=== PATIENT | male | born 1940 | race Caucasian/White ===

== ENCOUNTER 2016-12-04 18:48 | Inpatient (IN) | payer MEDICARE, BC ==
--- NOTE | 2016-12-04 19:35 | EDM.PDOC ---
ED HPI GENERAL MEDICAL PROBLEM - General Chief Complaint: General Stated Complaint: WEAKNESS Time Seen by Provider: 12/04/16 19:27 Source of Information: Reports: Patient, Family () History Limitations: Reports: No Limitations - History of Present Illness INITIAL COMMENTS - FREE TEXT/NARRATIVE: PER , SHE STATES PT HAS BECOME INCREASINGLY WEAK AND SHE CAN'T TAKE CARE OF HIM ANYMORE. HE HAS DIFFICULTY WALKING AND USING THE BATHROOM. PT DENIES CP, SOB , VEGA, ANY PAIN, N/V/D, OR LOC. Onset: Gradual Severity: Mild Improves with: Reports: None Worsens with: Reports: None Associated Symptoms: Reports: No Other Symptoms - Related Data Allergies Allergy/AdvReac Type Severity Reaction Status Date / Time No Known Drug Allergies Allergy Cannot Verified 11/06/14 00:48 Remember Home Meds: Home Meds Acetaminophen [Non-Aspirin] 650 mg PO Q6H PRN 09/30/13 [History] Albuterol [Proventil Neb Soln] 1 unit INH QID PRN 09/30/13 [History] Albuterol [Ventolin HFA] 2 puff INH Q4H PRN 09/30/13 [History] Aspirin 325 mg PO DAILY 09/30/13 [History] traMADol [Ultram] 50 - 100 mg PO TID PRN 09/30/13 [History] Furosemide [Lasix] 40 mg PO DAILY #60 tab 10/03/13 [Rx] Mirabegron [Myrbetriq] 25 mg PO DAILY 12/04/16 [History] Spironolactone [Aldactone] 50 mg PO BID 12/04/16 [History] Umeclidinium [place] [Incruse Ellipta] 1 puff INH DAILY 12/04/16 [History] Social & Family History - Tobacco Use Smoking Status *Q: Light Tobacco Smoker Years of Tobacco use: 50 Used Tobacco, but Quit: No - Alcohol Use Days Per Week of Alcohol Use: 0 - Recreational Drug Use Recreational Drug Use: No ED ROS GENERAL - Review of Systems Review Of Systems: ROS reveals no pertinent complaints other than HPI. Constitutional: Reports: Weakness HEENT: Reports: No Symptoms Respiratory: Reports: No Symptoms Cardiovascular: Reports: No Symptoms Endocrine: Reports: No Symptoms GI/Abdominal: Reports: No Symptoms : Reports: No Symptoms Musculoskeletal: Reports: No Symptoms Skin: Reports: No Symptoms Neurological: Reports: No Symptoms Psychiatric: Reports: No Symptoms Hematologic/Lymphatic: Reports: No Symptoms Immunologic: Reports: No Symptoms ED EXAM, GENERAL - Physical Exam Exam: See Below Exam Limited By: No Limitations General Appearance: Alert, WD/WN, No Apparent Distress Eye Exam: Bilateral Eye: Normal Inspection Nose: Normal Inspection, Normal Mucosa, No Blood Throat/Mouth: Normal Inspection, Normal Oropharynx, No Airway Compromise Head: Atraumatic, Normocephalic Neck: Normal Inspection, Supple, Non-Tender Respiratory/Chest: No Respiratory Distress, Lungs Clear, Decreased Breath Sounds Cardiovascular: Regular Rate, Rhythm, No Murmur GI/Abdominal: Normal Bowel Sounds, Soft, Non-Tender Back Exam: Normal Inspection. No: CVA Tenderness (L), CVA Tenderness (R) Extremities: Normal Inspection, No Pedal Edema, Normal Capillary Refill Neurological: Alert, Oriented, Normal Cognition Psychiatric: Normal Affect, Normal Mood Skin Exam: Warm, Dry, Intact, Normal Color, No Rash Lymphatic: No Adenopathy EKG INTERPRETATION EKG Date: 12/04/16 Time: 20:15 QT: prolonged EKG Interpretation Comments: PVC'S Course - Orders/Labs/Meds Orders: Active Orders 24 hr Category Date Time Status EKG Documentation Completion [RC] ASDIRECTED Care 12/04/16 19:01 Active Peripheral IV Care [RC] . DIRECTED Care 12/04/16 19:01 Active Chest 1V Frontal [CR] Stat Exams 12/04/16 19:00 Ordered COMPREHENSIVE METABOLIC PN,CMP [CHEM] Stat Lab 12/04/16 19:00 Ordered UA W/MICROSCOPIC [URIN] Stat Lab 12/04/16 19:00 Uncollected Sodium Chloride 0.9% [Syrex Flush] Med 12/04/16 19:00 Active 5 ml FLUSH Q8HR PRN Peripheral IV Insertion Adult [OM.PC] Routine Oth 12/04/16 19:00 Ordered EKG 12 Lead [EK] Routine Ther 12/04/16 19:00 Ordered Medication Orders Sodium Chloride (Syrex Flush) 5 ml FLUSH Q8HR PRN PRN Reason: Keep Vein Open Labs: Laboratory Tests 12/04/16 Range/Units 19:10 WBC 12.4 H (5.0-10.0) 10^3/uL RBC 4.95 (4.50-6.00) 10^6/uL Hgb 15.4 (13.0-17.0) g/dL Hct 45.7 (40.0-52.0) % MCV 92.4 H (82.0-92.0) fL MCH 31.1 H (27.0-31.0) pg MCHC 33.7 (32.0-36.0) g/dL RDW 13.1 (11.5-14.5) % Plt Count 153 (150-300) 10^3/uL MPV 8.5 (7.4-10.4) fL Neut % (Auto) 84.3 H (50.0-70.0) % Lymph % (Auto) 6.0 L (20.0-40.0) % [place] % (Auto) 9.1 H (2.0-8.0) % Eos % (Auto) 0.6 L (1.0-3.0) % Baso % (Auto) 0.0 (0.0-1.0) % Neut # (Auto) 10.5 H (2.5-7.0) 10^3/uL Lymph # (Auto) 0.7 L (1.0-4.0) 10^3/uL [place] # (Auto) 1.1 H (0.1-0.8) 10^3/uL Eos # (Auto) 0.1 (0.1-0.3) 10^3/uL Baso # (Auto) 0.0 (0.0-0.1) 10^3/uL Meds: Medications Generic Name Dose Route Start Last Admin Trade Name Freq PRN Reason Stop Dose Admin Sodium Chloride 5 ml 12/04/16 19:00 Syrex Flush FLUSH Q8HR PRN Keep Vein Open - Radiology Interpretation Free Text/Narrative:: CXR NO ACUTE PROCESS - Re-Assessments/Exams Free Text/Narrative Re-Assessment/Exam: 12/04/16 20:36 PT AFEBRILE, NONTOXIC APPEARING, SAT 95% ON MASK. DISCUSSED CASE WITH ALYSON BARBA AT [facility] AND HE WILL ADMIT AND FOLLOW Departure - Departure Time of Disposition: 20:38 Disposition: Admitted As Inpatient 64 Condition: fair Clinical Impression: Weakness of both legs, Hypoxia, Urinary retention, UTI, Urinary tract infectious disease, COPD (chronic obstructive pulmonary disease) - Discharge Information Forms: ED Department Discharge - My Orders Last 24 Hours: My Active Orders 12/04/16 19:00 Chest 1V Frontal [CR] Stat COMPREHENSIVE METABOLIC PN,CMP [CHEM] Stat UA W/MICROSCOPIC [URIN] Stat Sodium Chloride 0.9% [Syrex Flush] 5 ml FLUSH Q8HR PRN Peripheral IV Insertion Adult [OM.PC] Routine EKG 12 Lead [EK] Routine 12/04/16 19:01 EKG Documentation Completion [RC] ASDIRECTED Peripheral IV Care [RC] . DIRECTED - Assessment/Plan Last 24 Hours: My Active Orders 12/04/16 19:00 Chest 1V Frontal [CR] Stat COMPREHENSIVE METABOLIC PN,CMP [CHEM] Stat UA W/MICROSCOPIC [URIN] Stat Sodium Chloride 0.9% [Syrex Flush] 5 ml FLUSH Q8HR PRN Peripheral IV Insertion Adult [OM.PC] Routine EKG 12 Lead [EK] Routine 12/04/16 19:01 EKG Documentation Completion [RC] ASDIRECTED Peripheral IV Care [RC] . DIRECTED Assessment:: UTI / WEAKNESS Plan: ADMIT INPATIENT
[2016-12-04] MEDS ORDERED: methylPREDNISolone Sodium Succinate 125 MG/2 ML SDV IVPUSH ONE (20:31)
[2016-12-04] MEDS ORDERED: cefTRIAXone 1 GM Vial IVPUSH ONE (20:32)
[2016-12-04] MEDS ORDERED: Albuterol HFA 18 Gm Inhaler INH PRN (21:05)
[2016-12-04] MEDS ORDERED: traMADol 50 MG Tab PO PRN (21:05)
[2016-12-04] MEDS ORDERED: Non-Formulary Medication 1 Each (Mirabegron 25 MG) PO SCH (21:15)
[2016-12-04] MEDS ORDERED: cefTRIAXone 1 GM in Sodium Chloride 0.9% 50 ML IV SCH (21:15)
[2016-12-04] MEDS: Sodium Chloride 0.9% 5 ML Syringe FLUSH PRN (21:42)
[2016-12-04] MEDS: Albuterol/Ipratropium 3.0-0.5 MG/3 ML Neb Soln NEB SCH ×2 (21:46→22:51)
[2016-12-04] MEDS: Umeclidinium Bromide 62.5 MCG 30 Puff Inhaler IH SCH (21:53)
[2016-12-05] MEDS: Albuterol/Ipratropium 3.0-0.5 MG/3 ML Neb Soln NEB SCH ×4 (05:28→22:32)
[2016-12-05] MEDS: Aspirin 325 MG Tab.EC PO SCH (08:07)
[2016-12-05] MEDS: Furosemide 40 MG Tab PO SCH (08:07)
[2016-12-05] MEDS: Spironolactone 25 MG Tab PO SCH ×2 (08:07→20:43)
[2016-12-05] MEDS: Acetaminophen 325 MG Tab PO SCH ×2 (08:07→20:44)
[2016-12-05] MEDS: methylPREDNISolone Sodium Succinate 125 MG/2 ML SDV IVPUSH SCH ×2 (08:13→20:44)
[2016-12-05] MEDS: Umeclidinium Bromide 62.5 MCG 30 Puff Inhaler IH SCH (08:35)
[2016-12-05] MEDS ORDERED: Betamethasone Dipropionate/Clotrimazole 0.05-1% Crm 15 GM Tube TOP SCH (11:00)
--- NOTE | 2016-12-05 12:23 | HP ---
CHIEF COMPLAINT: Leg weakness with deconditioning at home. HISTORY OF PRESENT ILLNESS: The patient has a long history of some spinal stenosis. At home, his has been taking care of him. She states that lately his legs have been getting much weaker. He is unable to stand very long. He is getting very hard to take care of at home. He was just having some generalized weakness. He denied any chest pain, fever, or nausea. The patient was just complaining of generalized weakness, not feeling well with leg weakness. PAST MEDICAL HISTORY: The patient has a history of spinal stenosis, COPD, urinary incontinence, hypertension, leg swelling, and chronic pain. MEDICATIONS: The patient takes Incruse inhaler once daily, Myrbetriq 25 mg daily, albuterol inhalers as needed, Tylenol 650 mg twice a day, Lasix 40 mg daily, aspirin 325 mg daily, Aldactone 50 mg twice a day, and tramadol 50 mg to 100 mg three times a day as needed. SOCIAL/PERSONAL HISTORY: The patient is retired. He did smoke cigarettes for 50 years. He currently does not smoke cigarettes or drink alcohol. He lives at home with his . He is retired. REVIEW OF SYSTEMS: CONSTITUTIONAL: He denies any fever, chills, or night sweats. Appetite has been okay, but he complains of generalized weakness and fatigue, especially leg weakness. EYES: No recent visual changes. ENT: No sinus congestion or hoarseness. CARDIOVASCULAR: No chest pain or palpitations. RESPIRATORY: No cough. No shortness of breath. GI: No vomiting, diarrhea or melena. : No dysuria or hematuria. MUSCULOSKELETAL: No new bone pain or joint swelling. INTEGUMENTARY: No rash or pruritus. NEUROLOGIC/PSYCHIATRIC: No recent headache or focal weakness. No depressive symptoms. ENDOCRINE: No heat or cold intolerances or polydipsia. HEMATOLOGIC/LYMPHATIC: No excessive bruising or lymph node swelling. ALLERGIC/IMMUNOLOGIC: No hives or recurrent infections. PHYSICAL EXAMINATION: GENERAL: This is a white male in no acute distress. VITAL SIGNS: Upon admission, blood pressure is 125/61, pulse 64, temperature is 97.1, respiratory rate 20, oxygen saturation on 2 L nasal cannula is 94%. HEENT: Head is normocephalic. EOMs are intact. Pupils are equal, round, and reactive to light and accommodation. Bilateral tympanic membranes are intact. Nose is clear. No pharyngeal erythema noted. NECK: Supple. No JVD. Trachea midline. LUNGS: Clear through all lung matson, slightly diminished at bilateral bases. CARDIAC: Heart tones are regular rate and rhythm. No murmurs identified. ABDOMEN: Soft, nontender, and nondistended. Bowel sounds present x4. EXTREMITIES: Full range of motion. Some stiffness to his legs noted. No joint effusions noted. NEUROLOGIC: Grossly intact. DIAGNOSTIC: In the emergency room, the patient had a chest x-ray, which the impression per Radiology read stable chest. The patient also had an EKG obtained in the emergency room, which showed sinus rhythm with frequent PVCs at 92 beats per minute, otherwise unremarkable. LABORATORY DATA: The patient's lab work: CBC showed a white count elevated at 12.4, hemoglobin 15.4, platelets 153. Chemistry panel shows a BUN elevated at 44. Creatinine 2.76, GFR 22, glucose 140, and total bilirubin 2.1. Otherwise, unremarkable. Urinalysis showed dark yellow in color, trace of protein, large amount of blood, small amount of bilirubin, trace of leukocyte esterase, 30 to 40 RBCs, 5-10 WBCs, and few bacteria. IMPRESSION/PLAN: 1. Chronic obstructive pulmonary disease exacerbation. The patient was brought into the emergency room and chest x-ray was obtained, which was clear per Radiology. The patient's oxygen saturations were down to 81%. The patient was given a one time dose of 125 mg Solu-Medrol IV in the emergency room along with 1 g Rocephin IV. We will continue with the patient's Incruse inhaler once daily, oxygen per nasal cannula to keep his sats greater than 90%. Solu-Medrol 40 mg IV q.12 hours. Duo nebs every six hours. The patient has smoked for 50 years. 2. Mild urinary tract infection. Plan: The patient's urinalysis in the emergency room showed a large amount of blood, WBCs 5-10. He was straight catheterized for 1200 mL. We will continue with Rocephin 1 g IV daily. 3. Deconditioning with history of spinal stenosis with leg weakness. Plan: Physical therapy evaluation along with [facility] consult regarding residential placement. Follow up with nursing assistance too. 4. History of hypertension with fluid retention. Plan: Continue with Aldactone 50 mg twice a day along with Lasix 40 mg daily along with aspirin 325 mg daily. 5. Areas of dermatitis to left axillary and right belt line. Plan: We will use clotrimazole cream along with Hydrazone cream twice a day to the reddened areas. 6. Chronic pain. Plan: Continue with tramadol 50 mg to 100 mg three times daily as needed. 7. Urinary retention. Plan: The patient was straight catheterized in the emergency room for 1200 mL. The patient was recently started on Myrbetriq daily for urinary dribbling. We are going to hold patient's Myrbetriq at this time due to the urinary retention. 8. Chronic kidney disease, stage 4. Plan: The patient's GFR is 22, that is around his baseline. Continue to monitor. /[id number]/MODL
[2016-12-05] MEDS: Clotrimazole 1% Crm 30 GM Tube TOP SCH ×2 (13:42→20:44)
[2016-12-05] MEDS: Hydrocortisone 1% Crm 30 GM Tube TOP SCH (20:43)
[2016-12-05] MEDS: cefTRIAXone 1 GM Vial IVPUSH SCH (20:44)
[2016-12-06] MEDS: Albuterol/Ipratropium 3.0-0.5 MG/3 ML Neb Soln NEB SCH ×4 (05:55→22:12)
[2016-12-06] MEDS: Furosemide 40 MG Tab PO SCH (08:46)
[2016-12-06] MEDS: Aspirin 325 MG Tab.EC PO SCH (08:46)
[2016-12-06] MEDS: methylPREDNISolone Sodium Succinate 125 MG/2 ML SDV IVPUSH SCH ×2 (08:46→21:48)
[2016-12-06] MEDS: Acetaminophen 325 MG Tab PO SCH ×2 (08:48→21:48)
[2016-12-06] MEDS: Spironolactone 25 MG Tab PO SCH ×2 (08:48→21:47)
[2016-12-06] MEDS: Sodium Chloride 0.9% 5 ML Syringe FLUSH PRN (08:50)
[2016-12-06] MEDS: Hydrocortisone 1% Crm 30 GM Tube TOP SCH ×2 (08:58→21:38)
[2016-12-06] MEDS: Clotrimazole 1% Crm 30 GM Tube TOP SCH ×2 (08:59→21:37)
[2016-12-06] MEDS: Umeclidinium Bromide 62.5 MCG 30 Puff Inhaler IH SCH (09:12)
--- NOTE | 2016-12-06 10:49 | PN ---
12/06/2016 PATIENT NAME: VINEET DIAMOND SUBJECTIVE: The patient states that he feels a little better today. His states that his appetite is much better today than usual, he ate all of his breakfast. The patient states that he feels that his breathing is better today. On exam, he is not as shortness of breath as he was previously. He denies any chest pain or palpitations or fever. The patient states that overall he does feel better today. The patient was originally admitted with generalized weakness and leg weakness. OBJECTIVE: VITAL SIGNS: Today, temperature is 97.8, pulse is 68, blood pressure is 135/72, respiratory rate is 22, oxygen saturation on 2 L nasal cannula is 91%. GENERAL: This is an elderly white gentleman, in no acute distress. LUNGS: Sounds are clear throughout lung matson. HEART: Tones are regular rate and rhythm. No murmurs identified. ABDOMEN: Soft, nontender, and nondistended. Bowel sounds present x4. EXTREMITIES: No pedal edema noted on exam. LABORATORY DATA: The patient's lab work that he had drawn two days ago on admission did show an elevated white count at 12.4. The patient's GFR at that time was 22. IMPRESSION AND PLAN: 1. Exacerbation of chronic obstructive pulmonary disease. Plan, in the emergency room, the patient's oxygen saturations were down to 81%. The patient was originally given 125 mg of Solu-Medrol IV in the ER. The patient continues on Solu-Medrol 40 mg IV every 12 hours. He seems to be doing much better today. His oxygen saturations are 91% on 2 L nasal cannula today. We will continue with DuoNeb every 6 hours. The patient has a 23-akfo-yhhr history of smoking cigarettes. We will continue him on the 2 L nasal cannula. We will also continue with his Incruse inhaler once daily. Chest x-ray that was obtained in the emergency room was unremarkable per Radiology. 2. Mild urinary tract infection. Plan, the patient's urinalysis that was obtained in the emergency room did show a small amount of WBCs and positive for nitrates. We will continue with Rocephin 1 g IV daily at this time. 3. Deconditioning with leg weakness, secondary to history of spinal stenosis. Plan, we are going to have Physical Therapy do an evaluation today, also, have [facility] to see him today for possible custodial placement. 4. History of hypertension with fluid retention. Plan, continue with Aldactone 50 mg twice a day, along with Lasix 40 mg daily. Also continue with aspirin 325 mg daily. 5. Areas of dermatitis to the left axillary and right belt line. Plan, continue with clotrimazole cream twice a day, along with Hydrocortisone cream twice a day. 6. Chronic pain. Plan, continue with tramadol 50 mg to 100 mg three times a day as needed. 7. Urinary retention. Plan, in the ER the patient was straight cathed for 1200 mL. We are holding patient's Myrbetriq at this time. 8. Chronic kidney disease, stage IV. The patient's GFR in the ER was 22, that is around the patient's baseline. We will repeat CBC and comprehensive metabolic panel tomorrow morning. /[id number]/MODL
[2016-12-06] MEDS: cefTRIAXone 1 GM Vial IVPUSH SCH (21:48)
[2016-12-07] MEDS: Albuterol/Ipratropium 3.0-0.5 MG/3 ML Neb Soln NEB SCH ×4 (05:45→22:22)
[2016-12-07] MEDS: Spironolactone 25 MG Tab PO SCH ×2 (08:16→20:03)
[2016-12-07] MEDS: Aspirin 325 MG Tab.EC PO SCH (08:16)
[2016-12-07] MEDS: methylPREDNISolone Sodium Succinate 125 MG/2 ML SDV IVPUSH SCH ×2 (08:16→09:29)
[2016-12-07] MEDS: Furosemide 40 MG Tab PO SCH (08:16)
[2016-12-07] MEDS: Acetaminophen 325 MG Tab PO SCH ×2 (08:16→20:04)
[2016-12-07] MEDS ORDERED: Calcium Carbonate 500 MG Tab.Chew PO PRN (08:28)
[2016-12-07] MEDS: Umeclidinium Bromide 62.5 MCG 30 Puff Inhaler INH SCH (09:06)
[2016-12-07] MEDS: Hydrocortisone 1% Crm 30 GM Tube TOP SCH ×2 (10:25→20:03)
[2016-12-07] MEDS: Clotrimazole 1% Crm 30 GM Tube TOP SCH ×2 (10:25→20:04)
[2016-12-07] MEDS: Pantoprazole 40 MG Vial IVPUSH SCH (10:25)
--- NOTE | 2016-12-07 10:52 | PN ---
12/07/2016 PATIENT NAME: VINEET DIAMOND SUBJECTIVE: This is a 76-year-old gentleman who was brought to the emergency room a few days ago by his with concerns about his legs being weak and he was unstable at home. The patient does have a history of spinal stenosis. In the emergency room, the patient's oxygen saturations were low at 81%. The patient does have a long history of COPD. He smoked cigarettes for 50+ years. The patient's urinalysis showed a mild urinary tract infection. The patient was admitted with regard to exacerbation of COPD, mild urinary tract infection, and lower extremity weakness. Today, the patient states that his breathing is much better. His respiratory rate is much improved from yesterday. He complains of no cough or shortness of breath at this time. The patient does have a De Guzman catheter in place that has been draining clear yulia urine. The patient has been up to the chair. He has not been seen by Physical Therapy yet. He just states overall he is feeling much better. OBJECTIVE: VITAL SIGNS: Today, temperature is 96.0, pulse is 69, blood pressure is 104/55, respiratory rate is 18, oxygen saturation 92% on 3L nasal cannula. GENERAL: This is an elderly white gentleman in no acute distress. CARDIAC: Heart tones are regular rate and rhythm. No murmurs identified. Respiratory: Lungs sounds are clear throughout the lung matson. ABDOMEN: Soft, nontender. Bowel sounds are present x4. GENITOURINARY: De Guzman catheter is draining clear, pale yellow urine. EXTREMITIES: No pedal edema noted. LABORATORY DATA: The patient's lab work that was obtained today, CBC shows a white count slightly elevated at 11.4, this improved from three days ago when it was 12.4. The patient's chemistry panel shows BUN at 43, creatinine at 1.38, GFR at 50, this has much improved from admission when the patient's GFR was 22. The rest of the patient's chemistry panel is unremarkable. IMPRESSION AND PLAN: 1. Exacerbation of chronic obstructive pulmonary disease. Plan: The patient seems to be improving. We are going to decrease the patient's IV Solu- Medrol to 40 mg once daily. Continue with oxygen 2 L per nasal cannula. A 50+ year history of smoking cigarettes. Chest x-ray that was obtained on admission was unremarkable per Radiology. We will continue with DuoNeb every 6 hours. 2. Mild urinary tract infection. Plan: We will continue his Rocephin 1 g IV daily. De Guzman catheter is draining clear yellow urine at this time. 3. Deconditioning with leg weakness secondary to history of spinal stenosis. Plan: Hopefully, Physical Therapy can do an evaluation today. Social Service is planning on the patient be transferred and admitted to the [facility] tomorrow. 4. History of hypertension with fluid retention. Plan: Continue with Aldactone 50 mg twice a day along with Lasix 40 mg daily. Continue with aspirin 325 mg daily. 5. Areas of dermatitis to the left axillary area and right belt line. Plan: Continue with clotrimazole cream twice a day along with hydrocortisone cream twice a day. 6. Chronic pain. Plan: Continue with tramadol 50 mg to 100 mg three times a day as needed. 7. Urinary retention. Plan: The patient was straight catheterized in the emergency room for 1200 mL. He was recently started Myrbetriq. This has been discontinued and the patient has a De Guzman catheter in place draining well. We will discontinue the patient's De Guzman catheter before he is transferred to [facility]. 8. Chronic kidney disease, stage 2. Plan: The patient's GFR on admission was low at 22, today it has improved up to 50. The patient has been eating and drinking much better since admission. OVERALL PLAN: The patient seems to be improving. His respiratory status is much improved. Mild bladder infection seems to be also improving. He feels better overall. We are going to admit the patient to [facility] tomorrow. We will discontinue the De Guzman catheter prior to transfer and the patient on a tapering dose of prednisone along with DuoNeb as needed and Physical Therapy consult. /[id number]/MODL
[2016-12-07] MEDS: cefTRIAXone 1 GM Vial IVPUSH SCH (20:04)
[2016-12-08] MEDS: Albuterol/Ipratropium 3.0-0.5 MG/3 ML Neb Soln NEB SCH ×2 (05:52→10:35)
[2016-12-08 06:24] VITALS: BP 117/65
[2016-12-08] MEDS: Aspirin 325 MG Tab.EC PO SCH (08:53)
[2016-12-08] MEDS: Hydrocortisone 1% Crm 30 GM Tube TOP SCH (08:53)
[2016-12-08] MEDS: Spironolactone 25 MG Tab PO SCH (08:53)
[2016-12-08] MEDS: Clotrimazole 1% Crm 30 GM Tube TOP SCH (08:54)
[2016-12-08] MEDS: Furosemide 40 MG Tab PO SCH (08:54)
[2016-12-08] MEDS: Pantoprazole 40 MG Vial IVPUSH SCH (08:55)
[2016-12-08] MEDS: methylPREDNISolone Sodium Succinate 125 MG/2 ML SDV IVPUSH SCH (08:56)
[2016-12-08] MEDS: Acetaminophen 325 MG Tab PO SCH (08:56)
[2016-12-08] MEDS: Umeclidinium Bromide 62.5 MCG 30 Puff Inhaler INH SCH (09:23)
--- NOTE | 2016-12-09 07:43 | DISCH ---
ADMITTING DIAGNOSIS: Exacerbation of chronic obstructive pulmonary disease, mild urinary tract infection, and generalized weakness with leg weakness secondary to spinal stenosis. FINAL DIAGNOSES: Exacerbation of chronic obstructive pulmonary disease improved, urinary tract infection resolved, and patient continues with generalized weakness with leg weakness secondary to spinal stenosis. BRIEF HISTORY AND ESSENTIAL FINDINGS: This is a 76-year-old gentleman who had presented to the emergency room with his , they are both having concerns about the patient having his legs being weak at home, his legs that seem to be much weaker at home. He had a history of spinal stenosis. He was unable to stand for very long and the was having a hard time taking care of the patient. He denied any chest pain, fever, cough, or nausea. In the emergency room, the patient was found to have oxygen saturations as low at 81%. He was also found to have a mild urinary tract infection. He was admitted to the hospital at that time for further evaluation and treatment and possible [facility] placement. SIGNIFICANT LABS, X-RAYS, AND CONSULTATION FINDINGS: The patient did undergo a video fluoroscopy swallow eval which showed that he does have severe aspiration with swallowing. The patient's chest x-ray that was obtained in the emergency was clear per Radiology. EKG that was obtained in the emergency room showed sinus rhythm with occasional PVCs. The patient's lab work upon admission back on 11/24/2016, CBC showed a white count slightly elevated at 12.4, hemoglobin 15.4, platelet count 153. Chemistry panel was unremarkable except for he had elevated BUN at 44, creatinine was elevated at 2.76. GFR at that time was 22. Urinalysis that was obtained on admission which is dark in color, had a large amount of blood, trace of leukocyte esterase, and 5 to 10 wbc's. Repeat lab work that was obtained on 12/07/2016, CBC showed a white count that had come down slightly to 11.4, hemoglobin stable at 14.6. Chemistry panel showed improvement in his renal function. BUN was down to 43, creatinine was down to 1.38, GFR was up to 50, otherwise unremarkable. COURSE IN HOSPITAL WITH COMPLICATIONS IF ANY: The patient was admitted, he was somewhat short of breath. He received DuoNebs every 6 hours along with some IV Solu-Medrol. His breathing and oxygen saturations did improve. The patient has had a De Guzman catheter placed due to some urinary retention upon admission. The patient was taking some Myrbetriq at home. In the emergency room, he was straight cathed for a total of 1200 mL. His Myrbetriq was discontinued at that time. De Guzman catheter was inserted. Urine was draining clear pale yellow urine from the De Guzman catheter throughout the hospital stay. The patient was afebrile, did well throughout the hospital stay. His appetite did improve. His strength also did improve throughout the hospital stay. CONDITION, TREATMENT, AND FINAL DISPOSITION ON DISCHARGE AND PROGNOSIS: Condition is stable. Final disposition would be [facility] in [place], [place]. IMPRESSION AND PLAN: 1. Exacerbation of Chronic obstructive pulmonary disease. Plan: This is much improved. I am going to discontinue the patient's IV Solu-Medrol. No tapering dose of prednisone will be needed. He can have DuoNebs at the [facility] every 6 hours p.r.n., continue with Incruse inhaler once daily. The patient does have a 50+ year history of smoking cigarettes. Chest x-ray while here in the hospital was clear per Radiology. 2. Mild urinary tract infection. Plan: Resolved. The patient received Rocephin while in the hospital. De Guzman will be discontinued before discharge. No further antibiotics needed. 3. Deconditioning with leg weakness secondary to history of spinal stenosis. Plan: We will send the patient to [facility] with a PT consult. 4. History of hypertension with fluid retention. Plan: Continue with Aldactone 50 mg twice a day along with Lasix 40 mg daily. Continue with aspirin 325 mg daily. 5. Areas of dermatitis to left axillary area and right belt line. Plan: Continue with clotrimazole cream twice a day along with hydrocortisone cream twice a day to these areas at the [facility]. 6. Chronic pain. Plan: Continue with tramadol 50 to 100 mg three times a day as needed. 7. Urinary retention, on admission. Plan: The patient's Myrbetriq was discontinued. He was straight cathed for a large amount 1200 mL on admission to the hospital. He will have to wear brief at the [facility]. 8. Chronic kidney disease, stage IV. Plan: The patient's renal function did improve throughout the hospital stay. On admission, his GFR was 22, repeat lab work showed that come up to 50, this is doing well, since he has been eating and drinking much better. OVERALL PLAN: The patient is going to be discharged to [facility] here in [place], [place] today. His IV Solu-Medrol will be discontinued, IV antibiotics will be discontinued. He can have DuoNebs every 6 hours as needed. Urinary tract infection has resolved. He can have some clotrimazole and hydrocortisone cream to the few areas of dermatitis, otherwise the patient has been doing well. /[id number]/MODL
== END 2016-12-08 12:00 | DRG 191 ==
LOC: KA.ED 18:48 → KA.MS 20:39
PROVIDERS: ADMIT Physician Assistant Surgical; ATTEND Physician Assistant
PROC: 0T9B70Z Drainage of Bladder with Drainage Device, Via Natural or Artificial Opening (ICD-10-PCS; principal; 2016-12-05)
DX: J44.9 Chronic obstructive pulmonary disease, unspecified (principal); J44.1 Chronic obstructive pulmonary disease with (acute) exacerbation; N39.0 Urinary tract infection, site not specified; R09.02 Hypoxemia; N18.4 Chronic kidney disease, stage 4 (severe); R60.0 Localized edema; M48.00 Spinal stenosis, site unspecified; L30.9 Dermatitis, unspecified; G89.29 Other chronic pain; I12.9 Hypertensive chronic kidney disease with stage 1 through stage 4 chronic kidney disease, or unspecified chronic kidney disease; R33.9 Retention of urine, unspecified; Z79.899 Other long term (current) drug therapy; Z87.891 Personal history of nicotine dependence
CPT/HCPCS: 36415; 51798; 71010; 74230; 80053; 81001; 85025; 87086; 92526-GN; 92610-GN; 92611-GN; 93005; 94640; 97162-GP; 99285; A9270-GY; C9113; J0696; J2930

== ENCOUNTER 2017-07-17 12:30 | Inpatient (IN) | payer MEDICARE, BC ==
[2017-07-17] MEDS: Levofloxacin/Dextrose 5%-Water 100 ML IV SCH (14:15)
[2017-07-17] MEDS ORDERED: Bisacodyl 5 MG Tab PO PRN (15:22)
[2017-07-17] MEDS: Levofloxacin/Dextrose 5%-Water 50 ML IV SCH (15:23)
[2017-07-17] MEDS: Furosemide 40 MG/4 ML VIAL IVPUSH SCH (16:12)
[2017-07-17] MEDS: Piperacillin/Tazobactam/Dext 50 ML IV SCH ×2 (16:40→21:30)
[2017-07-17] MEDS: Albuterol/Ipratropium 3.0-0.5 MG/3 ML Neb Soln NEB SCH ×2 (17:56→22:20)
[2017-07-17] MEDS: Acetaminophen 325 MG Tab PO SCH (21:17)
[2017-07-17] MEDS: Docusate Sodium 100 MG Cap PO SCH (21:17)
[2017-07-17] MEDS: Spironolactone 25 MG Tab PO SCH (21:18)
[2017-07-17] MEDS: BALM TOP SCH (21:24)
[2017-07-18] MEDS: Piperacillin/Tazobactam/Dext 50 ML IV SCH ×4 (03:56→21:05)
[2017-07-18] MEDS: Albuterol/Ipratropium 3.0-0.5 MG/3 ML Neb Soln NEB SCH ×4 (04:50→22:45)
[2017-07-18] MEDS: Furosemide 40 MG/4 ML VIAL IVPUSH SCH (08:42)
[2017-07-18] MEDS: Aspirin 325 MG Tab.EC PO SCH (08:42)
[2017-07-18] MEDS: Spironolactone 25 MG Tab PO SCH ×2 (08:42→21:04)
[2017-07-18] MEDS: Docusate Sodium 100 MG Cap PO SCH ×2 (08:42→21:04)
[2017-07-18] MEDS: Zinc (Zinc Gluconate) 50 MG Tab PO SCH (08:43)
[2017-07-18] MEDS: Acetaminophen 325 MG Tab PO SCH ×2 (08:43→21:04)
[2017-07-18] MEDS: UMECLIDINIUM BROMIDE 62.5 MCG IH SCH (10:04)
--- NOTE | 2017-07-18 13:54 | PN ---
07/18/2017 PATIENT NAME: VINEET DIAMOND HISTORY OF PRESENT ILLNESS: The patient is a 77-year-old gentleman, who was recently placed in long-term care center in [place] this past summer due to his 's inability to care for him. He is a large man. He was admitted for concerns of cough, low oxygen levels. He does have COPD and he is on anticholinergic of Incruse one puff daily as his monotherapy. He does have CKD stage 3 with a GFR of 68, 05/2017. The patient was noted to have low oxygen saturations around 79%-88% with a low-grade temperature of 99.9 with diminished lung sounds at the [facility]. The day prior to him coming in, he had more shallow breathing and more coughing. He does have a history of chronic combined congestive heart failure, which echocardiogram in 2013 revealed normal size left ventricle, however, he did have mildly reduced systolic function. EF around 45% with mild diastolic dysfunction. He had been on Lasix about every 72 hours along with Aldactone. Chest x-ray determined the patient did have left lower lobe pneumonia, infiltrate, and a mildly elevated white count of 11.1 with some signs of neutrophilia with low oxygen levels. He was admitted for further workup and treatment. REVIEW OF SYSTEMS: CONSTITUTIONAL: Negative for fever, some fatigue. HEENT: Positive for congestion. RESPIRATORY: Positive for cough, however, denies shortness of breath. PHYSICAL EXAMINATION: VITAL SIGNS: Blood pressure 109/65, respiratory rate 24- 26, O2 sats 6 L 96%, temperature 96.1, weight is 217.5. CARDIOVASCULAR: Normal rate and rhythm. No S3. Normal S1, S2. LUNGS: Somewhat diminished. Mild crackles, left lower base. MUSCULOSKELETAL: 2+ edema, bilateral lower extremities. Currently has Enoch stockings on. SKIN: Warm, dry, and intact. PSYCHIATRIC: Jovial. GENITOURINARY: De Guzman catheter dependent draining. LABORATORY DATA: White count 7.8, hemoglobin 13.8, hematocrit 44.9, percentage neutrophils 73.6. Sodium 139, potassium 4.4, BUN 19, creatinine 1.19, glucose 121, calcium 9.2. Microbiology, negative for influenza A and B. Chest x-ray from [facility] demonstrates prominent interstitial markings bilaterally, mild interstitial pulmonary edema with linear opacification of the left lung base, likely scarring or atelectasis. IMPRESSION/PLAN: Upper respiratory infection, although, likely viral in etiology. Appears to be getting benefit from broad-spectrum Zosyn and Levaquin due to underlying pulmonary dysfunction. We will continue. The patient does seem to be improving. Normal white count now. Respiratory rate is decreased. Oxygen saturations are improving. Aggressive incentive spirometer, oxygen support. COPD, on monotherapy of Incruse as outpatient, hold for now. Continue with DuoNeb and oxygen support. Heart failure with reduced EF. Two-pound weight loss since admission. Intake 600, output 1100, -500. De Guzman catheter for strict intakes and outputs. Right now, we will continue with Aldactone and his Lasix is 40 mg IV daily. Monitor potassium level. Chronic kidney disease, stage 3. Remove De Guzman catheter tonight. We will get up in chair today. Esophageal dysphagia. The patient has had a swallow evaluation in the past. Does have some risks of aspiration. Family is refusing any more intervention. However, we will continue with proper tucking of chin, avoiding straws, small bolus of meals. This patient has been educated regarding this. Labs in the morning. /[id number]/MODL
[2017-07-18] MEDS ORDERED: Sodium Chloride 0.9% 100 ML ONE (14:06)
[2017-07-18] MEDS: BALM TOP SCH ×2 (14:15→21:05)
[2017-07-18] MEDS: Levofloxacin/Dextrose 5%-Water 100 ML IV SCH (14:16)
[2017-07-18] MEDS: Levofloxacin/Dextrose 5%-Water 50 ML IV SCH (15:00)
[2017-07-19] MEDS: Piperacillin/Tazobactam/Dext 50 ML IV SCH ×4 (03:16→21:30)
[2017-07-19] MEDS: Albuterol/Ipratropium 3.0-0.5 MG/3 ML Neb Soln NEB SCH ×4 (05:24→22:08)
[2017-07-19] MEDS: Spironolactone 25 MG Tab PO SCH ×2 (08:31→21:20)
[2017-07-19] MEDS: Docusate Sodium 100 MG Cap PO SCH ×2 (08:31→21:20)
[2017-07-19] MEDS: Furosemide 40 MG/4 ML VIAL IVPUSH SCH (08:31)
[2017-07-19] MEDS: Aspirin 325 MG Tab.EC PO SCH (08:31)
[2017-07-19] MEDS: Acetaminophen 325 MG Tab PO SCH ×2 (08:32→21:21)
[2017-07-19] MEDS: Zinc (Zinc Gluconate) 50 MG Tab PO SCH (08:33)
--- NOTE | 2017-07-19 11:25 | PN ---
07/19/2017 PATIENT NAME: VINEET DIAMOND JW Today, overall, the patient does feel better. He is in a chair. He is conversing, less shortness of breath. Continues with De Guzman catheter. This was not discontinued last night due to some hematuria. HISTORY: This is a 77-year-old gentleman who is a resident of a long-term care center. He was admitted due to low oxygen levels and concerns of a cough. He does have COPD, is on Incruse one puff daily as monotherapy. Does have a history of CKD. He was noted to have low oxygen saturations around 79% to 88% with a low-grade temperature. His spouse had become more concerned. The day prior to coming in, he was just breathing more shallow and did have some more cough. Does have a history of CHF with a low ejection fraction of 45%, mild diastolic dysfunction, been on Lasix every [facility] hours at the [facility] along with potassium-sparing Aldactone. Chest x-ray on admission showed the patient does have a left lower lobe pneumonia infiltrate with a mildly elevated white count so he was admitted here for further treatment. LABORATORY DATA: White count 10.2, percent of neutrophils about 80%, this is elevated from yesterday. Sodium 139, potassium 4.1, BUN 20 with a creatinine of 1.26, glucose 128, calcium 9.3. PHYSICAL EXAM: VITAL SIGNS: Temperature afebrile, T-max past 24 hours was 98.8, blood pressure 115/69, heart rate 77, O2 sats 92% this is 4 L, respiratory rate 20, daily weight 214. This is another 3-pound loss. Total weight loss since admission is approximately 5 to 6 pounds. He is very nearing his dry weight of 212. CARDIOVASCULAR: Normal rate and rhythm. S1 and S2 normal. No gallop noted. LUNGS: Still slightly diminished. Still has a slight left crackle left lower base, however, much improved from yesterday. MUSCULOSKELETAL: Less pitting edema in extremities. He normally wears Beverley stocking at the [facility]. SKIN: Warm, dry, and intact. GENITOURINARY: De Guzman catheter dependent drainage. Slight hematuria. This will be removed this morning. Intake 1025 in, output 2150 with negative of 1125. MICROBIOLOGY: Negative influenza A and B. Chest x-ray from the [facility] demonstrates prominent interstitial markings bilaterally, mild interstitial pulmonary edema with linear opacification of the left lung base, likely atelectasis. IMPRESSION AND PLAN: 1. Upper respiratory infection with possible pneumonia. We will continue with Zosyn and Levaquin. I think he is getting benefit from this. Increase incentive spirometer usage. This was return demonstration this morning. Continue on oxygen therapy. He is improving clinically. 2. Chronic obstructive pulmonary disease. On monotherapy Incruse, holding for now while on DuoNebs. 3. Heart failure with reduced ejection fraction, 6-pound weight loss since admission. Negative balance of output, he continues to lose weight. Strict Is and Os. We will remove De Guzman catheter today. Continue with Lasix and Aldactone. Monitor electrolytes. 4. Chronic kidney disease. De Guzman tonight will be removed. Creatinine slightly elevated at 1.26. Estimated GFR approximately 50. OVERALL PLAN: Remove De Guzman catheter today. Continue with IV antibiotics. Transition to oral antibiotics tomorrow and do anticipate him going back to long- term care center tomorrow. We will place BEVERLEY stockings on him today. Monitor for any urinary retention. Aggressive pulmonary toileting today. /[id number]/MODL
[2017-07-19] MEDS: Levofloxacin/Dextrose 5%-Water 100 ML IV SCH (13:42)
[2017-07-19] MEDS: BALM TOP SCH ×2 (15:05→21:21)
[2017-07-19] MEDS: Levofloxacin/Dextrose 5%-Water 50 ML IV SCH (15:06)
[2017-07-19] MEDS: traMADol 50 MG Tab PO PRN (23:52)
[2017-07-20] MEDS: Piperacillin/Tazobactam/Dext 50 ML IV SCH ×4 (05:20→22:07)
[2017-07-20] MEDS: Albuterol/Ipratropium 3.0-0.5 MG/3 ML Neb Soln NEB SCH ×4 (05:26→22:15)
[2017-07-20] MEDS: Spironolactone 25 MG Tab PO SCH ×2 (08:20→20:45)
[2017-07-20] MEDS: Docusate Sodium 100 MG Cap PO SCH ×2 (08:20→20:44)
[2017-07-20] MEDS: Acetaminophen 325 MG Tab PO SCH ×2 (08:21→20:45)
[2017-07-20] MEDS: Aspirin 325 MG Tab.EC PO SCH (08:21)
[2017-07-20] MEDS: Zinc (Zinc Gluconate) 50 MG Tab PO SCH (08:22)
[2017-07-20] MEDS: Furosemide 40 MG/4 ML VIAL IVPUSH SCH (08:28)
[2017-07-20] MEDS: BALM TOP SCH (10:23)
--- NOTE | 2017-07-20 12:17 | PN ---
07/20/2017 PATIENT NAME: VINEET DIAMOND JW CHIEF COMPLAINT: Overnight report, multiple PVCs, multifocal. The patient now placed on telemetry this morning. However, the patient denies any lightheadedness or any chest palpitations or chest pain. Magnesium level is normal. HISTORY: A 77-year-old gentleman, resident of [facility] was initially admitted due to the low oxygen level, concerns of a cough. He does have COPD on monotherapy Incruse one puff daily. Also has a history of CKD, came in with low oxygen saturations between 79 to 88, those are much improved, low-grade temperature. He was just breathing shallow. Does have a history of CHF, diastolic EF low at 45%. He is on Lasix about every third day while in [facility]. He is also on potassium-sparing diuretic. LABS: This morning, his white count is down to 8.4, hemoglobin 13.5. Sodium 139, potassium 4.0, BUN 24, creatinine baseline is 1.26, and magnesium 2.4. Troponin less than 0.04. BNP 214. Daily weight is 212, down another 2 pounds, approximately 7-pound weight loss since admission. The catheter is now out. He is diuresing. PHYSICAL EXAM: VITAL SIGNS: Blood pressure 120/70, respiratory rate 22, O2 sats 92% on 4 L. GENERAL: The patient is alert and oriented. NECK: Negative JVD. LUNGS: Diminished sounds. Encouraged cough and deep breathing. CARDIOVASCULAR: Irregular rate and rhythm due to PVCs. S1 and S2 normal. No gallop noted. MUSCULOSKELETAL: Less pitting edema in extremities, however, slightly edematous upper extremities. GENITOURINARY: De Guzman catheter discontinued. MICROBIOLOGY: Negative influenza A and B. Chest x-ray [facility] demonstrates prominent interstitial markings bilaterally, mild interstitial pulmonary edema with linear opacifications of the left lung base, likely atelectasis. Incentive spirometer approximately 500 to 600. IMPRESSION AND PLAN: 1. Upper respiratory infection with possible pneumonia. Appears to be doing well on broad-spectrum Zosyn and Levaquin. Incentive spirometer encouraged today. We will continue with oxygen, clinically improving. 2. Ventricular arrhythmias. The patient will be started on beta yue today, placed in telemetry. 3. Chronic obstructive pulmonary disease, on monotherapy, Incruse. Holding this for now while he is on DuoNebs. 4. Heart failure with reduced ejection fraction, approximately 7-pound weight loss since admission. Intake 1000, output 2150, - 1125, on Lasix and Aldactone. Potassium is normal. 5. Chronic kidney disease. Creatinine 1.26. Estimated GFR 50. Overall plan, we will keep the patient one more day, place him on telemetry, add a beta yue, carvedilol 1.25 b.i.d. The patient likely can be transferred back to long-term [facility] tomorrow. We will continue with respiratory and pulmonary support. The patient is improving clinically. /[id number]/MODL
[2017-07-20] MEDS: Carvedilol 6.25 MG Tab PO SCH ×2 (14:08→19:32)
[2017-07-20] MEDS: Levofloxacin/Dextrose 5%-Water 100 ML IV SCH (14:16)
[2017-07-20] MEDS: Levofloxacin/Dextrose 5%-Water 50 ML IV SCH (15:38)
[2017-07-20] MEDS ORDERED: Carvedilol 6.25 MG Tab PO SCH (18:00)
[2017-07-20] MEDS: traMADol 50 MG Tab PO PRN (19:30)
[2017-07-21] MEDS: BALM TOP SCH ×3 (02:07→21:20)
[2017-07-21] MEDS: Piperacillin/Tazobactam/Dext 50 ML IV SCH ×4 (04:08→21:35)
[2017-07-21] MEDS: Albuterol/Ipratropium 3.0-0.5 MG/3 ML Neb Soln NEB SCH ×4 (05:37→23:10)
[2017-07-21] MEDS: Spironolactone 25 MG Tab PO SCH ×2 (08:52→21:17)
[2017-07-21] MEDS: Docusate Sodium 100 MG Cap PO SCH ×2 (08:52→21:17)
[2017-07-21] MEDS: Zinc (Zinc Gluconate) 50 MG Tab PO SCH (08:54)
[2017-07-21] MEDS: Aspirin 325 MG Tab.EC PO SCH (08:54)
[2017-07-21] MEDS: Carvedilol 6.25 MG Tab PO SCH ×2 (08:57→18:12)
[2017-07-21] MEDS: Furosemide 40 MG/4 ML VIAL IVPUSH SCH (09:02)
[2017-07-21] MEDS: Acetaminophen 325 MG Tab PO SCH ×2 (09:13→21:17)
--- NOTE | 2017-07-21 10:16 | PCM.PN ---
- General Info Date of Service: 07/21/17 Subjective Update: This patient states that he is feeling better. His shortness of breath is also improved. No chest pain. Coughing is also improving. Still gets easily short of breath with the slightest movement. No leg pain. Still has some pedal edema. No abdominal discomfort . - Review of Systems General: Reports: No Symptoms HEENT: Reports: No Symptoms Pulmonary: Reports: Shortness of Breath (Still complains of some frequent wheezing.) Cardiovascular: Reports: No Symptoms Gastrointestinal: Reports: No Symptoms Genitourinary: Reports: No Symptoms Musculoskeletal: Reports: No Symptoms Neurological: Reports: No Symptoms Psychiatric: Reports: No Symptoms - Patient Data Vitals - Most Recent: Last Vital Signs Temp 98.9 F 07/21/17 06:27 Pulse 80 07/21/17 08:57 Resp 24 H 07/21/17 06:27 BP 122/67 07/21/17 08:57 Pulse Ox 93 L 07/21/17 06:27 Weight - Most Recent: 212 lb I&O - Last 24 Hours: Intake & Output 07/20/17 07/21/17 07/21/17 22:59 06:59 14:59 Intake Total 845 125 Balance 845 125 Med Orders - Current: Current Medications Acetaminophen (Tylenol) 650 mg PO BID [facility] Last Admin: 07/21/17 09:13 Dose: 650 mg Albuterol/Ipratropium (Duoneb 3.0-0.5 Mg/3 Ml) 3 ml NEB Q6HRRT [facility] Last Admin: 07/21/17 05:37 Dose: 3 ml Aspirin (Ecotrin) 325 mg PO DAILY [facility] Last Admin: 07/21/17 08:54 Dose: 325 mg Bisacodyl (Dulcolax) 5 mg PO DAILY PRN PRN Reason: Constipation Carvedilol (Coreg) 3.125 mg PO BIDMEALS [facility] Last Admin: 07/21/17 08:57 Dose: 3.125 mg Docusate Sodium (Colace) 100 mg PO BID [facility] Last Admin: 07/21/17 08:52 Dose: 100 mg Furosemide (Lasix) 40 mg IVPUSH DAILY [facility] Last Admin: 07/21/17 09:02 Dose: 40 mg Levofloxacin/Dextrose (Levaquin In D5w 500 Mg/100 Ml) 100 mls @ 100 mls/hr IV Q24H [facility] Last Admin: 07/20/17 14:16 Dose: 100 mls/hr Levofloxacin/Dextrose (Levaquin In D5w 250 Mg/50 Ml) 50 mls @ 50 mls/hr IV Q24H [facility] Last Admin: 07/20/17 15:38 Dose: 50 mls/hr Piperacillin/Tazobactam/Dextrose (Zosyn In Dextrose Iso-Osmotic 3.375 Gm) 50 mls @ 100 mls/hr IV Q6H [facility] Last Admin: 07/21/17 04:08 Dose: 100 mls/hr Bag [place] Ointment (Ptom) 0 each TOP BID [facility] Last Admin: 07/21/17 02:07 Dose: 1 each Senna/Docusate Sodium (Senna Plus) 1 tab PO BID [facility] Last Admin: 07/21/17 08:54 Dose: 1 tab Sodium Chloride (Syrex Flush) 5 ml FLUSH Q8HR PRN PRN Reason: Keep Vein Open Spironolactone (Aldactone) 50 mg PO BID [facility] Last Admin: 07/21/17 08:52 Dose: 50 mg Tramadol HCl (Ultram) 50 mg PO BID PRN PRN Reason: Pain Last Admin: 07/20/17 19:30 Dose: 50 mg Zinc Gluconate (Zinc) 50 mg PO DAILY [facility] Last Admin: 07/21/17 08:54 Dose: 50 mg Discontinued Medications Carvedilol (Coreg) 3.125 mg PO BIDMEALS [facility] Sodium Chloride (Normal Saline) Confirm Administered Dose 100 mls @ as directed .ROUTE .STK-MED ONE Stop: 07/18/17 14:07 Last Admin: 07/18/17 14:20 Dose: 20 ml - Exam General: Alert, Oriented HEENT: Pupils Equal, Pupils Reactive, EOMI, Mucous Membr. Moist/[place] Neck: Supple Lungs: Rales (Also present in both bases left is more than the right.) Cardiovascular: Regular Rate (Patient has had some irregular heart rate and arrhythmia. He was started on carvedilol and this problem seems to be getting a bit better.), Regular Rhythm GI/Abdominal Exam: Normal Bowel Sounds, Soft, Non-Tender, No Organomegaly, No Distention, No Abnormal Bruit, No Mass, Pelvis Stable (Male) Exam: No Hernia, Normal Inspection, Normal Prostate, Circumcised Back Exam: Normal Inspection, Full Range of Motion Extremities: Normal Inspection, Normal Range of Motion, Non-Tender, No Pedal Edema, Normal Capillary Refill Skin: Warm, Dry, Intact Neurological: No New Focal Deficit Psy/Mental Status: Alert, Normal Affect, Normal Mood - Problem List & Annotations (1) Acute on chronic congestive heart failure SNOMED Code(s): 38959977 Code(s): I50.9 - HEART FAILURE, UNSPECIFIED Status: Acute Current Visit: No (2) COPD (chronic obstructive pulmonary disease) SNOMED Code(s): 99362403 Code(s): J44.9 - CHRONIC OBSTRUCTIVE PULMONARY DISEASE, UNSPECIFIED Status : Acute Current Visit: No (3) Hypoxia SNOMED Code(s): 599681930 Code(s): R09.02 - HYPOXEMIA Status: Acute Current Visit: No (4) UTI, Urinary tract infectious disease SNOMED Code(s): 66918937 Code(s): N39.0 - URINARY TRACT INFECTION, SITE NOT SPECIFIED Status: Acute Current Visit: No (5) Urinary retention SNOMED Code(s): 669401961 Code(s): R33.9 - RETENTION OF URINE, UNSPECIFIED Status: Acute Current Visit: No (6) Weakness of both legs SNOMED Code(s): 5311087 Code(s): R29.898 - OT SYMPTOMS AND SIGNS INVOLVING THE MUSCULOSKELETAL SYSTEM Status: Acute Current Visit: No - Problem List Review Problem List Initiated/Reviewed/Updated: Yes - My Orders Last 24 Hours: My Active Orders 07/21/17 09:22 Discontinue Telemetry Monitoring [Cardiac Monitoring Discontinue] [RC] Click to Edit - Assessment Assessment:: Congestive heart failure: This problem is definitely improving although not completely gone. This patient has evidence of adequate failure, diastolic failure. Has been started on carvedilol at low dose of 3.125 mg twice a day. Tolerating low dose fairly well. COPD: This problem appears to be stable at this time. He does have some coughing and shortness of breath and wheezing. Improved since yesterday. The x- ray shows prominent interstitial markings suggestive of edema. It is quite possible that he may have had some exacerbation of infection also. The patient is taking levofloxacin for this infection as well as Zosyn. Weakness of the legs: Stable. Urinary retention: Stable. UTI stable.
[2017-07-21] MEDS: traMADol 50 MG Tab PO PRN (11:29)
[2017-07-21] MEDS: Levofloxacin/Dextrose 5%-Water 100 ML IV SCH (13:23)
[2017-07-21] MEDS: Levofloxacin/Dextrose 5%-Water 50 ML IV SCH (14:41)
[2017-07-22] MEDS: traMADol 50 MG Tab PO PRN ×2 (01:22→17:14)
[2017-07-22] MEDS: Piperacillin/Tazobactam/Dext 50 ML IV SCH ×4 (04:57→21:33)
[2017-07-22] MEDS: Albuterol/Ipratropium 3.0-0.5 MG/3 ML Neb Soln NEB SCH ×4 (05:00→22:25)
[2017-07-22] MEDS ORDERED: Bisacodyl 10 MG Supp RECTAL ONE (07:28)
[2017-07-22] MEDS: Docusate Sodium 100 MG Cap PO SCH ×2 (08:29→21:27)
[2017-07-22] MEDS: Spironolactone 25 MG Tab PO SCH ×2 (08:29→21:28)
[2017-07-22] MEDS: Aspirin 325 MG Tab.EC PO SCH (08:29)
[2017-07-22] MEDS: Carvedilol 6.25 MG Tab PO SCH ×2 (08:30→17:51)
[2017-07-22] MEDS: Furosemide 40 MG/4 ML VIAL IVPUSH SCH (08:30)
[2017-07-22] MEDS: BALM TOP SCH ×2 (08:31→21:35)
[2017-07-22] MEDS: Acetaminophen 325 MG Tab PO SCH ×2 (08:32→21:27)
[2017-07-22] MEDS: Zinc (Zinc Gluconate) 50 MG Tab PO SCH (08:32)
[2017-07-22] MEDS ORDERED: Bisacodyl 10 MG Supp ONE (09:35)
[2017-07-22] MEDS: Levofloxacin/Dextrose 5%-Water 100 ML IV SCH (14:51)
[2017-07-22] MEDS: Levofloxacin/Dextrose 5%-Water 50 ML IV SCH (15:52)
[2017-07-23] MEDS: Piperacillin/Tazobactam/Dext 50 ML IV SCH ×4 (03:33→22:01)
[2017-07-23] MEDS: Albuterol/Ipratropium 3.0-0.5 MG/3 ML Neb Soln NEB SCH ×2 (05:55→11:37)
[2017-07-23] MEDS: Sodium Chloride 0.9% 5 ML Syringe FLUSH PRN (08:14)
[2017-07-23] MEDS: Furosemide 40 MG/4 ML VIAL IVPUSH SCH (08:14)
[2017-07-23] MEDS: Spironolactone 25 MG Tab PO SCH ×2 (08:14→21:50)
[2017-07-23] MEDS: Carvedilol 6.25 MG Tab PO SCH ×2 (08:15→17:12)
[2017-07-23] MEDS: Docusate Sodium 100 MG Cap PO SCH ×2 (08:16→21:52)
[2017-07-23] MEDS: Aspirin 325 MG Tab.EC PO SCH (08:17)
[2017-07-23] MEDS: Zinc (Zinc Gluconate) 50 MG Tab PO SCH (08:18)
[2017-07-23] MEDS: Acetaminophen 325 MG Tab PO SCH ×2 (08:18→21:50)
[2017-07-23] MEDS: BALM TOP SCH ×2 (08:19→21:52)
[2017-07-23] MEDS: traMADol 50 MG Tab PO PRN (10:32)
[2017-07-23] MEDS ORDERED: Albuterol/Ipratropium 3.0-0.5 MG/3 ML Neb Soln NEB PRN (11:16)
--- NOTE | 2017-07-23 11:17 | PCM.PN ---
- General Info Date of Service: 07/23/17 Functional Status: Reports: Pain Controlled, Tolerating Diet, Urinating, Incentive Spirometry (Continues to be about 500 on incentive spirometer). Denies: Ambulating - Review of Systems General: Reports: Weakness, Fatigue. Denies: Fever, Night Sweats HEENT: Reports: No Symptoms Pulmonary: Reports: Cough. Denies: Shortness of Breath, Sputum, Wheezing Cardiovascular: Denies: Chest Pain, Orthopnea, PND, Edema Gastrointestinal: Reports: No Symptoms Genitourinary: Reports: No Symptoms Musculoskeletal: Reports: Back Pain Skin: Reports: No Symptoms Neurological: Reports: No Symptoms Psychiatric: Reports: No Symptoms - Patient Data Vitals - Most Recent: Last Vital Signs Temp 98.5 F 07/23/17 06:25 Pulse 65 07/23/17 08:15 Resp 28 H 07/23/17 06:25 BP 139/67 07/23/17 08:15 Pulse Ox 96 07/23/17 10:00 Weight - Most Recent: 212 lb 11.2 oz I&O - Last 24 Hours: Intake & Output 07/22/17 07/23/17 07/23/17 22:59 06:59 14:59 Intake Total 445 100 Balance 445 100 Lab Results Last 24 Hours: Laboratory Results - last 24 hr 07/23/17 07/23/17 Range/Units 07:00 07:00 WBC 14.3 H (5.0-10.0) 10^3/uL RBC 4.75 (4.50-6.00) 10^6/uL Hgb 13.6 (13.0-17.0) g/dL Hct 44.7 (40.0-52.0) % MCV 94.1 H (82.0-92.0) fL MCH 28.7 (27.0-31.0) pg MCHC 30.5 L (32.0-36.0) g/dL RDW 15.6 H (11.5-14.5) % Plt Count 186 (150-300) 10^3/uL MPV 8.5 (7.4-10.4) fL Neut % (Auto) 82.3 H (50.0-70.0) % Lymph % (Auto) 6.5 L (20.0-40.0) % Jones % (Auto) 6.8 (2.0-8.0) % Eos % (Auto) 3.5 H (1.0-3.0) % Baso % (Auto) 0.9 (0.0-1.0) % Neut # (Auto) 11.8 H (2.5-7.0) 10^3/uL Lymph # (Auto) 0.9 L (1.0-4.0) 10^3/uL Jones # (Auto) 1.0 H (0.1-0.8) 10^3/uL Eos # (Auto) 0.5 H (0.1-0.3) 10^3/uL Baso # (Auto) 0.1 (0.0-0.1) 10^3/uL Sodium 141 (136-145) mmol/L Potassium 4.2 (3.3-5.3) mmol/L Chloride 99 (98-115) mmol/L Carbon Dioxide 36.5 H (21.0-32.0) mmol/L BUN 24 (6-25) mg/dL Creatinine 1.30 H (0.51-1.17) mg/dL Est Cr Clr Drug Dosing 47.57 mL/min Estimated GFR (MDRD) 53 mL/min Glucose 107 (70-110) mg/dL Calcium 9.3 (8.7-10.3) mg/dL Med Orders - Current: Current Medications Acetaminophen (Tylenol) 650 mg PO BID [facility] Last Admin: 07/23/17 08:18 Dose: 650 mg Albuterol/Ipratropium (Duoneb 3.0-0.5 Mg/3 Ml) 3 ml NEB Q6HRRT [facility] Last Admin: 07/23/17 05:55 Dose: 3 ml Aspirin (Ecotrin) 325 mg PO DAILY [facility] Last Admin: 07/23/17 08:17 Dose: 325 mg Bisacodyl (Dulcolax) 5 mg PO DAILY PRN PRN Reason: Constipation Last Admin: 07/21/17 14:18 Dose: 5 mg Carvedilol (Coreg) 3.125 mg PO BIDMEALS [facility] Last Admin: 07/23/17 08:15 Dose: 3.125 mg Docusate Sodium (Colace) 100 mg PO BID [facility] Last Admin: 07/23/17 08:16 Dose: 100 mg Furosemide (Lasix) 40 mg IVPUSH DAILY [facility] Last Admin: 07/23/17 08:14 Dose: 40 mg Levofloxacin/Dextrose (Levaquin In D5w 500 Mg/100 Ml) 100 mls @ 100 mls/hr IV Q24H [facility] Last Admin: 07/22/17 14:51 Dose: 100 mls/hr Levofloxacin/Dextrose (Levaquin In D5w 250 Mg/50 Ml) 50 mls @ 50 mls/hr IV Q24H [facility] Last Admin: 07/22/17 15:52 Dose: 50 mls/hr Piperacillin/Tazobactam/Dextrose (Zosyn In Dextrose Iso-Osmotic 3.375 Gm) 50 mls @ 100 mls/hr IV Q6H [facility] Last Admin: 07/23/17 09:22 Dose: 100 mls/hr Bag [place] Ointment (Ptom) 0 each TOP BID [facility] Last Admin: 07/23/17 08:19 Dose: 1 each Senna/Docusate Sodium (Senna Plus) 1 tab PO BID [facility] Last Admin: 07/23/17 08:49 Dose: Not Given Sodium Chloride (Syrex Flush) 5 ml FLUSH Q8HR PRN PRN Reason: Keep Vein Open Last Admin: 07/23/17 08:14 Dose: 5 ml Spironolactone (Aldactone) 50 mg PO BID [facility] Last Admin: 07/23/17 08:14 Dose: 50 mg Tramadol HCl (Ultram) 50 mg PO BID PRN PRN Reason: Pain Last Admin: 07/23/17 10:32 Dose: 50 mg Zinc Gluconate (Zinc) 50 mg PO DAILY [facility] Last Admin: 07/23/17 08:18 Dose: 50 mg Discontinued Medications Bisacodyl (Dulcolax) 10 mg RECTAL ONETIME ONE Stop: 07/22/17 07:29 Last Admin: 07/22/17 09:37 Dose: 10 mg Bisacodyl (Dulcolax) Confirm Administered Dose 10 mg .ROUTE .STK-MED ONE Stop: 07/22/17 09:36 Last Admin: 07/22/17 09:56 Dose: Not Given [facility] Sodium Chloride (Normal Saline) Confirm Administered Dose 100 mls @ as directed .ROUTE .STK-MED ONE Stop: 07/18/17 14:07 Last Admin: 07/18/17 14:20 Dose: 20 ml - Exam Quality Assessment: Supplemental Oxygen. No: Urine Catheter, Skin Breakdown General: No: Alert, Oriented, Cooperative, No Acute Distress Neck: No JVD. No: JVD Lungs: Crackles Cardiovascular: Regular Rate, Regular Rhythm. No: Irregular Rhythm GI/Abdominal Exam: Soft Back Exam: No: CVA Tenderness (L), CVA Tenderness (R) Extremities: No: Pedal Edema Neurological: No New Focal Deficit Psy/Mental Status: Alert, Normal Affect, Normal Mood - Problem List Review Problem List Initiated/Reviewed/Updated: Yes - Assessment Assessment:: Primary impression Heart failure, much improved, no JVD, tolerating low dose Coreg, weight stable. Reduce Lasix, on dryer side of baseline Chronic obstructive pulmonary disease, change duo nebs to when necessary, place patient back on home on monotherapy Incruse. Neutrophilia, ongoing, likely lagging indicator as clinically improving, continue with Zosyn and vancomycin, CKD, creatinine slightly up, slightly on dry side, reduce Lasix to 20 mg daily for now. Now at dry weight Weakness of the legs: Stable. Urinary retention: De Guzman catheter has been removed, voiding spontaneously Disposition discharge planning, patient likely will be transferred back to long- term care tomorrow. She clinically improving. Continue antibiotics for now, aggressive pulmonary toileting, overall patient likely will benefit from physical therapy at long-term care center due to progressive weakness and debilitation
[2017-07-23] MEDS: UMECLIDINIUM BROMIDE 62.5 MCG IH SCH ×4 (11:48→13:49)
[2017-07-23] MEDS: Levofloxacin/Dextrose 5%-Water 100 ML IV SCH (13:27)
[2017-07-23] MEDS: Levofloxacin/Dextrose 5%-Water 50 ML IV SCH (14:39)
[2017-07-24] MEDS: Loperamide 2 MG Cap PO PRN ×2 (00:30→04:19)
[2017-07-24] MEDS: Piperacillin/Tazobactam/Dext 50 ML IV SCH (03:13)
[2017-07-24] MEDS: Acetaminophen 325 MG Tab PO SCH (08:15)
[2017-07-24] MEDS: BALM TOP SCH (08:16)
[2017-07-24] MEDS: Zinc (Zinc Gluconate) 50 MG Tab PO SCH (08:16)
[2017-07-24] MEDS: Aspirin 325 MG Tab.EC PO SCH (08:16)
[2017-07-24] MEDS: Spironolactone 25 MG Tab PO SCH (08:16)
[2017-07-24 08:17] VITALS: BP 110/68
[2017-07-24] MEDS: Carvedilol 6.25 MG Tab PO SCH (08:17)
[2017-07-24] MEDS: Docusate Sodium 100 MG Cap PO SCH (08:19)
--- NOTE | 2017-07-24 08:20 | PN ---
07/22/2017 PATIENT NAME: VINEET DIAMOND JW OVERNIGHT REPORT: The patient did quite well. However, he is slightly constipated today. He was placed on telemetry a day or two ago for some arrhythmias and PVCs. This has been discontinued. Was started on low-dose Coreg. The patient is asymptomatic. HISTORY: A 77-year-old gentleman, resident of a long-term care center and initially admitted due to low oxygen saturations with concerns of a cough. Low saturations were between 79% and 88%. He also had a low-grade fever. He was taking some shallow breaths. He does have a history of CHF with low EF of 45. He has been improving each day here. He has been receiving benefit from acute care stay. PHYSICAL EXAM: VITAL SIGNS: Weight is 210. He is down 9 pounds since his admission. Blood pressure slightly low at 106/59. We did start Coreg. Heart rate 80, still slightly irregular. He does have a pacemaker put in. Temperature 98.0, temperature max past 24 hours 99.7. White count 8.4, normal hemoglobin. Sodium and potassium normal. BUN 24, creatinine 1.26. BNP 214. Negative troponin. GENERAL: The patient is alert and oriented. He is cooperative. NECK: Negative JVD. LUNGS: Still has some slight rales in his left base. GI: Nontender. Normal bowel sounds. EXTREMITIES: Does have some mild edema in lower extremities. SKIN: Warm, dry, and intact. Perfusing well. MICROBIOLOGY: Negative for influenza A and B. IMPRESSION AND PLAN: 1. Upper respiratory infection with concomitant chronic obstructive pulmonary disease which is clinically stable. We will discontinue broad-spectrum Zosyn. However, we will continue on Levaquin, more pulmonary toileting, sitting upright, incentive spirometer, coughing and deep breathing, respiratory precautions. Chest x-ray demonstrates new bibasilar infiltrates with atelectasis, right greater than left. 2. Heart failure with reduced ejection fraction. This is chronic diastolic. He is nearing his dry weight. Started on low-dose carvedilol, appears to be tolerating this well. Blood pressure slightly low, however, mean arterial pressure adequate. Total intake 1630 in with 1605 out. Monitor potassium levels. 3. Chronic obstructive pulmonary disease. We will continue with DuoNebs. Continue holding his Incruse at this time. 4. Chronic kidney disease. Creatinine 1.26. Estimated GFR 50. /[id number]/MODL
[2017-07-24] MEDS: Sodium Chloride 0.9% 5 ML Syringe FLUSH PRN (08:21)
[2017-07-24] MEDS: UMECLIDINIUM BROMIDE 62.5 MCG IH SCH (08:29)
[2017-07-24] MEDS ORDERED: Furosemide 40 MG/4 ML VIAL IVPUSH SCH (09:00)
[2017-07-24] MEDS ORDERED: Atropine/Diphenoxylate 0.025-2.5 MG Tab PO ONE (09:30)
--- NOTE | 2017-07-25 08:15 | DISCH ---
FINAL DIAGNOSES: 1. Heart failure, much improved. 2. Chronic obstructive pulmonary disease, acute exacerbation, much improved. 3. Neutrophilia, improving. 4. Chronic kidney disease. 5. Weakness of lower extremities. 6. Urinary retention, resolved. 7. Heart failure with preserved ejection fraction, chronic, combined systolic and diastolic. HISTORY: This 77-year-old gentleman initially came to the clinic with concerns of cough and low oxygen saturation. He is a resident of a long-term care center. He was brought in by his due to having oxygen saturations between 79% to 88%, low-grade temperature 99.9 with diminished lung sounds. He had been breathing more shallowing, more cough, and the patient does have COPD, is on monotherapy, improves. Also has a history of CKD stage 3 with combined heart failure. The patient was admitted, started on antibiotics with aggressive pulmonary toileting. His influenza was negative. HOSPITAL COURSE: Hospital course went fairly well. He progressed slowly each day. The patient does have significant debilitation. He has really slowed down over the past 1 to 2 years. His no longer can take care of him. He never became hemodynamically unstable, although he did have some tachycardia. He was started on new medication Coreg low-dose b.i.d., he tolerated that well. His weight was monitored. He got back to his dry weight with diuretics. MICROBIOLOGY: C. diff was negative. He did have some ongoing diarrhea. Influenza A and B were negative. He was on antibiotics of broad-spectrum along with vancomycin, he received benefit from this. IMAGING: His chest x-ray did show interstitial markings suggestive of edema. We did have him monitored initially on telemetry. Due to his slightly tachycardia and his PVCs, he was started on Coreg. They seemed to improve tremendously. Once he got under 10 per minute, telemetry was discontinued. PHYSICAL EXAM ON DISCHARGE: VITAL SIGNS: Weight is 214, up 2 pounds from his dry weight. Afebrile. Blood pressure 110/68, heart rate 77, temperature 98.3, respiratory rate 96% on 2.5 L. GENERAL: The patient is alert and oriented. Afebrile. LUNGS: Still have some mild crackles, lower bases, however, this is chronic for him. Mild edema in lower extremities. He does have BEVERLEY stockings on. CARDIOVASCULAR: Slightly irregular but improved. DISCHARGE MEDICATIONS: 1. Levaquin 500 mg p.o. x4 days, newly added. 2. Coreg 3.125 mg p.o. b.i.d. with meals (newly added). 3. Lomotil 1 tablet p.o. up to four times a day, limited doses for diarrhea p.r.n. (newly added). 4. The patient can continue on all other home medications including Lasix and Aldactone along with monotherapy Incruse. DISPOSITION: The patient has maximized benefit to the hospital. However, he will receive physical therapy and occupational therapy. He has become quite deconditioned. He will be transferred back to [facility]. Diet will be low sodium 1800. Keep legs elevated. Coughing and deep breathing every 3 hours with incentive spirometer. Report worsening diarrhea, fever, nausea, or increase in weight gain. Forty-five minutes spent on discharge planning and process. /[id number]/MODL
== END 2017-07-24 11:55 | DRG 292 ==
LOC: KA.MS 12:51
PROVIDERS: ADMIT Nurse Practitioner Family; ATTEND Family Medicine
DX: I50.42 Chronic combined systolic (congestive) and diastolic (congestive) heart failure (principal); J44.1 Chronic obstructive pulmonary disease with (acute) exacerbation; D72.0 Genetic anomalies of leukocytes; N18.3 Chronic kidney disease, stage 3 (moderate); M62.81 Muscle weakness (generalized); R33.9 Retention of urine, unspecified; R00.0 Tachycardia, unspecified; R19.7 Diarrhea, unspecified; E78.5 Hyperlipidemia, unspecified; Z79.899 Other long term (current) drug therapy; Z95.810 Presence of automatic (implantable) cardiac defibrillator
CPT/HCPCS: 36415; 71046; 80048; 83735; 83880; 84484; 85025; 87324; 87804; 93005; 94640; 94640-76; A9270-GY; J1940; J1956; J2543; J7050